=== PATIENT | male | born 1985 | race Caucasian/White ===

== ENCOUNTER 2017-01-23 18:11 | Inpatient (IN) | payer OTHER ==
[~2017-01-23] VITALS: Ht 182.8 cm; Wt 62.1 kg
--- NOTE | ~2017-01-23 | CON ---
[place], [place] REPORT OF CONSULTATION NAME: YIN UMANZOR UNIT #: [id number] ROOM: [facility] DOCTOR: Lisa CAMPOS,ELEUTERIOCLEMENTINA BIRTHDATE: [birth year] DOS: 01/24/2017 REASON FOR CONSULTATION: Suicide attempt by overdose. HISTORY OF PRESENT ILLNESS: The patient was seen, chart reviewed and spoke with the resident as well as the nursing staff. The patient is a 31-year-old white male, daughter and by the side. The patient got admitted to the ICU after overdose on an unknown amount of Tylenol. Reportedly, the patient overdosed on a handful of Tylenol when no one was at home except for the youngest kid. The patient was a little bit irritable and upset during the interview. He said that he has been feeling depressed lately because of his pain issues. He said that his pain physician as well as his neurology team has been giving him a "run around." He also talked about feeling like "less of a man." He reported being depressed, down, sad, hopeless and helpless, but when I discussed with him about the issue of getting admitted to a psych unit, he became really upset and agitated and felt like there is no need for him to get into the hospital. He denied any symptoms of psychosis, aime, or hypomania. ALLERGIES: No known drug allergies. PAST MEDICAL HISTORY: Significant for low back pain. PAST PSYCHIATRIC HISTORY: The patient denied any prior psychiatric hospitalization. No prior suicide attempt. No suicide in the family. Denied having any gun at home. SUBSTANCE ABUSE HISTORY: The patient mentioned that he smokes marijuana at times. Denied any drugs or alcohol. SOCIAL HISTORY: Born and raised in the [place], 11th grade education, never , has 4 kids. 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 He lives with his girlfriend and kids. Denied any history of physical or sexual abuse. MENTAL STATUS EXAMINATION: The patient was irritable and upset. Described his mood as "okay." Affect was labile. Thought process goal directed. No flight of ideas, loosening of association. He denied auditory or visual hallucination. No delusion or paranoia noted. He denied any suicidal or homicidal ideation, intent or plan, although he made a suicide attempt by overdosing on pills. He is still labile and irritable and still he reports being depressed and down. ASSESSMENT: 1. Major depressive disorder, recurrent without psychotic feature, status post suicide attempt. 2. Marijuana abuse. PLAN: 1. Continue current care in the ICU. [place], [place] REPORT OF CONSULTATION NAME: YIN UMANZOR UNIT #: [id number] ROOM: [facility] DOCTOR: Lisa CAMPOS,STEVEN BIRTHDATE: [birth year] 2. Please transfer the patient to inpatient psych hospitalization for further care and stabilization. This is based on the fact that the patient overdosed on Tylenol and he is still very labile, irritable and angry. 3. Continue redirection and supportive care. 4. The patient should be pink slipped and sent to the psychiatric unit if he refuses. STEVEN CAMPOS MD CM:CONSTR:REPORT OF CONSULTATION 1148 01/25/17 0206 interface
[~2017-01-23 18:11] MED LIST: 'PARAFON FORTE500 M1 PO; ABILIFY15 MG PO; ACETAMINOHPEN/C1 TAB PO; ACETAMINOPHEN-H1 TA2 PO; ADDERALL XR10 MG; AMOXICILLIN500 MG PO; CYCLOBENZAPRINE10 MG PO; Depakote250 MG PO; FLEXERIL10 MG PO; FLEXERIL5 MG PO; GEODON40 MG PO; HYDROCODONE BIT1 T11 PO; IBU800 M1 PO; LITHIUM CARBON300 MG PO; LOMOTIL 0.025 M1 TA1 PO; MOTRIN800 MG PO; Motrin,Rufen800 MG PO; NAPROSYN500 MG PO; NORCO 5-325 TA1 EACH PO; PREDNICOT20 MG PO; PREDNISONE10 MG PO; ULTRAM50 MG PO; XANAX1 MG; ZOFRAN ODT4 MG SL
[2017-01-23 18:27] VITALS: BP 146/86
[2017-01-23 18:30] LABS: BASO % 0.4 % (0.0-1.0); EOS # 0.1 10*3/uL (0.0-0.4); EOS % 0.9 % (1.0-4.0); HEMATOCRIT 44.6 % (42.0-52.0); HEMOGLOBIN 15.6 g/dl (14.0-18.0); LYMPH # 1.9 10*3/uL (1.3-4.4); LYMPH % 17.7 % (27.0-41.0); MEAN CELL VOLUME 88.1 fl (80.0-94.0); MEAN CORPUSCULAR HGB 30.8 pg (27.0-31.0); MEAN PLATELET VOLUME 9.7 fl (9.6-12.3); MONO # 0.7 10*3/uL (0.1-1.0); MONO % 6.7 % (3.0-9.0); NEUT # 7.7 10*3/uL (2.3-7.9); PLATELET COUNT AUTOMATED 283 10*3/uL (130-400); RED BLOOD COUNT 5.06 10*6/uL (4.50-5.90); RED CELL DISTRI WIDTH 13.2 % (0-14.5); WHITE BLOOD COUNT 10.4 10*3/uL (4.8-10.8)
[2017-01-23 18:46] LABS: ALBUMIN 4.6 gm/dl (3.1-4.5); ALKALINE PHOSPHATASE 69 U/L (45-117); BILIRUBIN, TOTAL 0.8 mg/dl (0.2-1.0); BUN 7 mg/dl (7-24); CARBON DIOXIDE 26 mmol/L (21-32); CHLORIDE 105 mmol/L (98-107); EST GLOM FILT AFRICAN AMERICAN > 60 ml/min; GLUCOSE 102 mg/dL (65-99); POTASSIUM 3.6 mmol/L (3.5-5.1); SGOT/AST 19 IU/L (3-35); SGPT/ALT 17 U/L (12-78); SODIUM 141 mmol/L (136-145); TOTAL PROTEIN 7.7 gm/dL (6.4-8.2)
[2017-01-23 18:48] LABS: TROPONIN I < 0.015 ng/ml (<0.045)
[2017-01-23 18:50] LABS: INTERNATIONAL NORM RATIO 1.2 (2.0-3.5); PROTHROMBIN TIME 13.3 SECONDS (9.0-12.4)
[2017-01-23 18:53] LABS: THYROID STIM HORMONE (HS) 0.139 uIU/ml (0.358-4.75)
[2017-01-23 19:03] LABS: BILIRUBIN NEGATIVE (NEGATIVE); BLOOD NEGATIVE (NEGATIVE); CLARITY SL CLOUDY (CLEAR); COLOR YELLOW (YELLOW); GLUCOSE NEGATIVE (NEGATIVE); KETONE NEGATIVE (NEGATIVE); LEUKO ESTERASE NEGATIVE (NEGATIVE); NITRITE NEGATIVE (NEGATIVE); PROTEIN NEGATIVE (NEGATIVE); SPECIFIC GRAVITY <= 1.005 (1.005-1.030); URINE AMPHETAMINES < 1000 (1000ng/ml); URINE BARBITURATES < 200 (200ng/ml); URINE COCAINE < 300 (300ng/ml); UROBILINOGEN 0.2 E.U./dl (0.2-1.0)
[2017-01-23 19:10] VITALS: BP 129/90
[2017-01-23 19:13] LABS: BACTERIA 1+; EPITHELIAL CELLS 0-2; RBC 0-2 rbc/hpf (0-2); URINE REFLEX COMMENT NO (NO); WBC 0-2 wbc/hpf (0-5)
[2017-01-24 05:46] LABS: HEMOGLOBIN A1c 5.4 % (4.8-5.6)
[2017-01-24 05:59] LABS: ALBUMIN 3.6 gm/dl (3.1-4.5); ALKALINE PHOSPHATASE 54 U/L (45-117); BILIRUBIN, TOTAL 0.8 mg/dl (0.2-1.0); BUN 9 mg/dl (7-24); CARBON DIOXIDE 28 mmol/L (21-32); CHLORIDE 111 mmol/L (98-107); CHOLESTEROL 126 mg/dL (<200); EST GLOM FILT AFRICAN AMERICAN > 60 ml/min; FREE T4 1.12 ng/dl (0.76-1.46); GLUCOSE 90 mg/dL (65-99); HDL CHOLESTEROL 40 mg/dl (40-60); LDL CHOLESTEROL 63 mg/dL (9-159); POTASSIUM 3.4 mmol/L (3.5-5.1); SGOT/AST 21 IU/L (3-35); SGPT/ALT 17 U/L (12-78); SODIUM 143 mmol/L (136-145); TOTAL PROTEIN 6.6 gm/dL (6.4-8.2); TRIGLYCERIDES 115 mg/dl (<150); VLDL CHOLESTEROL 23 mg/dL (6-40)
[2017-01-24 06:05] LABS: THYROID STIM HORMONE (HS) 0.143 uIU/ml (0.358-4.75)
[2017-01-24 06:09] LABS: BASO % 0.4 % (0.0-1.0); EOS # 0.2 10*3/uL (0.0-0.4); EOS % 2.2 % (1.0-4.0); LYMPH # 1.8 10*3/uL (1.3-4.4); MEAN CELL VOLUME 88.6 fl (80.0-94.0); MEAN CORPUSCULAR HGB 30.2 pg (27.0-31.0); MEAN CORPUSCULAR HGB CONC 34.1 g/dl (33.0-37.0); MEAN PLATELET VOLUME 10.2 fl (9.6-12.3); MONO # 0.7 10*3/uL (0.1-1.0); MONO % 9.8 % (3.0-9.0); NEUT # 4.5 10*3/uL (2.3-7.9); NEUT % 62.5 % (47.0-73.0); PLATELET COUNT AUTOMATED 246 10*3/uL (130-400); RED BLOOD COUNT 4.63 10*6/uL (4.50-5.90); RED CELL DISTRI WIDTH 13.2 % (0-14.5); WHITE BLOOD COUNT 7.3 10*3/uL (4.8-10.8)
[2017-01-24 07:01] LABS: INTERNATIONAL NORM RATIO 1.3 (2.0-3.5); PROTHROMBIN TIME 13.6 SECONDS (9.0-12.4)
[2017-01-24 07:31] VITALS: BP 131/81
[2017-01-24 09:05] VITALS: BP 141/96; BP 147/96
[2017-01-24] MEDS ORDERED: VICO75300 PO (09:13)
[2017-01-24] MEDS ORDERED: PERCOCET 5-3251 EACH PO (09:13)
[2017-01-24 12:00] VITALS: BP 113/66
[2017-01-24 12:09] LABS: ALBUMIN 4.6 gm/dl (3.1-4.5); ALKALINE PHOSPHATASE 71 U/L (45-117); BILIRUBIN, TOTAL 0.9 mg/dl (0.2-1.0); BUN 8 mg/dl (7-24); CARBON DIOXIDE 25 mmol/L (21-32); CHLORIDE 108 mmol/L (98-107); EST GLOM FILT AFRICAN AMERICAN > 60 ml/min; GLUCOSE 97 mg/dL (65-99); SGOT/AST 30 IU/L (3-35); SGPT/ALT 23 U/L (12-78); SODIUM 139 mmol/L (136-145); TOTAL PROTEIN 8.2 gm/dL (6.4-8.2)
[2017-01-24 16:00] VITALS: BP 92/57
[2017-01-24 20:00] VITALS: BP 137/89
[2017-01-25] VITALS: BP 136/93
[2017-01-25 06:20] LABS: ALBUMIN 3.5 gm/dl (3.1-4.5); ALKALINE PHOSPHATASE 51 U/L (45-117); BILIRUBIN, TOTAL 0.8 mg/dl (0.2-1.0); BUN 8 mg/dl (7-24); CARBON DIOXIDE 27 mmol/L (21-32); CHLORIDE 110 mmol/L (98-107); EST GLOM FILT AFRICAN AMERICAN > 60 ml/min; GLUCOSE 90 mg/dL (65-99); POTASSIUM 3.9 mmol/L (3.5-5.1); SGOT/AST 21 IU/L (3-35); SGPT/ALT 18 U/L (12-78); SODIUM 142 mmol/L (136-145); TOTAL PROTEIN 6.3 gm/dL (6.4-8.2)
[2017-01-25 08:00] VITALS: BP 118/69
[2017-01-25 12:00] VITALS: BP 130/77
[2017-01-25 16:00] VITALS: BP 147/94
[2017-01-25 20:00] VITALS: BP 145/90
[2017-01-26 14:12] LABS: FOLIC ACID 15.89 ng/mL (>5.38)
== END 2017-01-25 22:38 | disposition home health service (06) | DRG 918 ==
LOC: ED 18:11 → EDHOLD 19:30 → ICCU 19:30
PROVIDERS: Internal Medicine; Nurse Practitioner Family
DX: T39.1X2A Poisoning by 4-Aminophenol derivatives, intentional self-harm, initial encounter (principal); E87.8 Other disorders of electrolyte and fluid balance, not elsewhere classified; F33.9 Major depressive disorder, recurrent, unspecified; F12.10 Cannabis abuse, uncomplicated; E87.6 Hypokalemia; T39.312A Poisoning by propionic acid derivatives, intentional self-harm, initial encounter; F17.200 Nicotine dependence, unspecified, uncomplicated; F41.1 Generalized anxiety disorder; M54.5 Low back pain; F20.9 Schizophrenia, unspecified; Z79.899 Other long term (current) drug therapy; Z83.1 Family history of other infectious and parasitic diseases; Z71.6 Tobacco abuse counseling

== ENCOUNTER 2017-12-08 01:44 | Emergency (ER) | payer OTHER ==
[~2017-12-08] VITALS: Ht 185.4 cm; Wt 68.0 kg
[~2017-12-08 01:44] MED LIST changes: +PERCOCET 5-3251 EACH PO; +VICO75300 PO
[2017-12-08 01:55] LABS: MEAN CELL VOLUME 92.9 fl (80.0-94.0); MEAN CORPUSCULAR HGB 30.3 pg (27.0-31.0); MEAN CORPUSCULAR HGB CONC 32.6 g/dl (33.0-37.0); MEAN PLATELET VOLUME 9.7 fl (9.6-12.3); PLATELET COUNT AUTOMATED 296 10*3/uL (130-400); RED BLOOD COUNT 4.95 10*6/uL (4.50-5.90); WHITE BLOOD COUNT 20.9 10*3/uL (4.8-10.8)
[2017-12-08 02:05] LABS: ACT PARTIAL THROMBO TIME 24.7 SECONDS (20.8-31.5); INTERNATIONAL NORM RATIO 1.3 (2.0-3.5)
[2017-12-08 02:12] LABS: ALBUMIN 4.4 gm/dl (3.1-4.5); ALKALINE PHOSPHATASE 155 U/L (45-117); BUN 25 mg/dl (7-24); CHLORIDE 101 mmol/L (98-107); CREATININE 1.32 mg/dL (0.70-1.30); POTASSIUM 4.7 mmol/L (3.5-5.1); SGOT/AST 222 IU/L (3-35); SGPT/ALT 143 U/L (12-78); SODIUM 139 mmol/L (136-145); TOTAL PROTEIN 8.3 gm/dL (6.4-8.2)
[2017-12-08 02:13] LABS: TOTAL CELLS COUNTED 100 #CELLS
[2017-12-08 02:14] LABS: BURR CELLS FEW; PLATELET SUFFICIENCY NORMAL (NORMAL)
[2017-12-08 02:15] LABS: ETHYL ALCOHOL < 3.0 mg/dl (<3); TROPONIN I < 0.015 ng/ml (<0.045)
[2017-12-08 02:16] LABS: ACETAMINOPHEN (TYLENOL) < 2.0 ug/ml (10-30)
[2017-12-08 02:47] VITALS: BP 103/65
[2017-12-08 03:45] LABS: BILIRUBIN NEGATIVE (NEGATIVE); BLOOD NEGATIVE (NEGATIVE); CLARITY CLEAR (CLEAR); COLOR YELLOW (YELLOW); GLUCOSE NEGATIVE (NEGATIVE); KETONE NEGATIVE (NEGATIVE); LEUKO ESTERASE NEGATIVE (NEGATIVE); NITRITE NEGATIVE (NEGATIVE); PH 5.5 (5.0-9.0); SPECIFIC GRAVITY >= 1.030 (1.005-1.030)
[2017-12-08 03:55] LABS: URINE AMPHETAMINES > 1000 (1000ng/ml); URINE BARBITURATES < 200 (200ng/ml); URINE BENZODIAZEPINES < 200 (200ng/ml); URINE CANNABINOIDS (THC) > 50 (50ng/ml); URINE COCAINE > 300 (300ng/ml); URINE METHADONE < 300 (300ng/ml); URINE OPIATES > 300 (300ng/ml)
[2017-12-08 04:04] LABS: URINE PHENCYCLIDINE < 25 (25ng/ml)
[2017-12-08 04:09] LABS: BACTERIA TRACE; RBC 0-2 rbc/hpf (0-2); WBC 0-2 wbc/hpf (0-5)
== END 2017-12-08 04:59 | disposition left against medical advice (07) ==
LOC: ED 01:44
PROVIDERS: Student in an Organized Health Care Education/Training Program
DX: T40.1X1A Poisoning by heroin, accidental (unintentional), initial encounter (principal); R65.10 Systemic inflammatory response syndrome (SIRS) of non-infectious origin without acute organ dysfunction; F12.10 Cannabis abuse, uncomplicated; F17.200 Nicotine dependence, unspecified, uncomplicated; Y92.9 Unspecified place or not applicable

== ENCOUNTER 2017-12-08 09:55 | Inpatient (IN) | payer OTHER ==
[~2017-12-08] VITALS: Ht 185.4 cm; Wt 64.0 kg
[2017-12-08 09:56] VITALS: BP 106/59
[2017-12-08 10:35] LABS: MEAN CELL VOLUME 91.2 fl (80.0-94.0); MEAN CORPUSCULAR HGB 30.7 pg (27.0-31.0); MEAN CORPUSCULAR HGB CONC 33.6 g/dl (33.0-37.0); MEAN PLATELET VOLUME 9.6 fl (9.6-12.3); PLATELET COUNT AUTOMATED 208 10*3/uL (130-400); RED BLOOD COUNT 4.11 10*6/uL (4.50-5.90); WHITE BLOOD COUNT 16.6 10*3/uL (4.8-10.8)
[2017-12-08 10:36] LABS: HEMATOCRIT 37.5 % (42.0-52.0); HEMOGLOBIN 12.6 g/dl (14.0-18.0)
[2017-12-08 10:48] LABS: BILIRUBIN NEGATIVE (NEGATIVE); BLOOD NEGATIVE (NEGATIVE); CLARITY SL CLOUDY (CLEAR); COLOR YELLOW (YELLOW); GLUCOSE NEGATIVE (NEGATIVE); KETONE NEGATIVE (NEGATIVE); LEUKO ESTERASE NEGATIVE (NEGATIVE); NITRITE NEGATIVE (NEGATIVE); SPECIFIC GRAVITY >= 1.030 (1.005-1.030)
[2017-12-08 10:51] LABS: ALBUMIN 3.6 gm/dl (3.1-4.5); ALKALINE PHOSPHATASE 111 U/L (45-117); BUN 19 mg/dl (7-24); CHLORIDE 103 mmol/L (98-107); CREATININE 0.77 mg/dL (0.70-1.30); POTASSIUM 4.1 mmol/L (3.5-5.1); SGOT/AST 110 IU/L (3-35); SGPT/ALT 105 U/L (12-78); SODIUM 136 mmol/L (136-145); TOTAL PROTEIN 6.8 gm/dL (6.4-8.2)
[2017-12-08 10:58] LABS: PLATELET SUFFICIENCY NORMAL (NORMAL); TOTAL CELLS COUNTED 100 #CELLS
[2017-12-08 11:01] LABS: URINE AMPHETAMINES < 1000 (1000ng/ml); URINE BARBITURATES < 200 (200ng/ml); URINE BENZODIAZEPINES < 200 (200ng/ml); URINE CANNABINOIDS (THC) > 50 (50ng/ml); URINE COCAINE > 300 (300ng/ml); URINE METHADONE < 300 (300ng/ml); URINE OPIATES > 300 (300ng/ml)
[2017-12-08 11:02] LABS: EPITHELIAL CELLS 0-2; MUCOUS 1+
[2017-12-08 11:03] LABS: URINE PHENCYCLIDINE < 25 (25ng/ml)
[2017-12-08 11:31] VITALS: BP 112/70
[2017-12-08 12:58] LABS: INTERNATIONAL NORM RATIO 1.3 (2.0-3.5)
[2017-12-08 16:11] VITALS: BP 93/50
[2017-12-08 20:00] VITALS: BP 93/47
[2017-12-09] VITALS: BP 109/60
[2017-12-09 04:00] VITALS: BP 92/45
[2017-12-09 08:00] VITALS: BP 97/54
== END 2017-12-09 11:34 | disposition left against medical advice (07) | DRG 894 ==
LOC: ED 09:55 → EDHOLD 10:59 → 5E 10:59
PROVIDERS: Internal Medicine Hospice and Palliative Medicine; Nurse Practitioner Family
DX: F11.23 Opioid dependence with withdrawal (principal); D68.9 Coagulation defect, unspecified; D64.9 Anemia, unspecified; M54.30 Sciatica, unspecified side; D72.829 Elevated white blood cell count, unspecified; F12.10 Cannabis abuse, uncomplicated; F14.10 Cocaine abuse, uncomplicated; Z53.21 Procedure and treatment not carried out due to patient leaving prior to being seen by health care provider; R07.9 Chest pain, unspecified; G25.81 Restless legs syndrome; R74.0 Nonspecific elevation of levels of transaminase and lactic acid dehydrogenase [LDH]; E83.51 Hypocalcemia; F41.1 Generalized anxiety disorder; F31.9 Bipolar disorder, unspecified; Z72.0 Tobacco use; Z71.6 Tobacco abuse counseling; Z83.6 Family history of other diseases of the respiratory system

== ENCOUNTER 2018-04-13 14:22 | Inpatient (IN) | payer OTHER ==
[~2018-04-13] VITALS: Ht 185.4 cm; Wt 59.0 kg
--- NOTE | ~2018-04-13 | EKG ---
[place], [place] ELECTROCARDIOGRAM REPORT NAME: YIN UMANZOR UNIT #: [id number] ROOM: 528 DOCTOR: KIMO DRAFT REPORT BIRTHDATE: [birth year] [facility] Test Date: 2018-04-13 Test Time: 15:16:00 Pat Name: YIN UMANZOR Department: Room: 528 Gender: M Electrocardiographic Technician: Cintia Weeks : 1985 Requested By: TIMOTHY LAMA DNP Order Number: [id number] Reading MD: Finn Oliva MD Measurements Intervals [place] Rate: 72 P: 60 ID: 110 QRS: 55 QRSD: 98 T: 44 QT: 379 QTc: 415 Interpretive Statements Sinus rhythm Borderline short ID interval Probable left ventricular hypertrophy ST elev, probable normal early repol pattern Baseline wander in lead(s) V4,V5 Electronically Signed On 04-14-2018 8:30:04 PDT by Finn Oliva MD CM:EKGRPT:ELECTROCARDIOGRAM REPORT 1516 [id number] TIMOTHY LAMA DNP EPIPHANY DRAFT REPORT TIMOTHY LAMA DNP
[2018-04-13 14:23] VITALS: BP 128/88
[2018-04-13 14:46] LABS: BILIRUBIN 1+ (NEGATIVE); BLOOD NEGATIVE (NEGATIVE); CLARITY SL CLOUDY (CLEAR); COLOR YELLOW (YELLOW); GLUCOSE NEGATIVE (NEGATIVE); KETONE 1+ (NEGATIVE); LEUKO ESTERASE NEGATIVE (NEGATIVE); NITRITE NEGATIVE (NEGATIVE)
[2018-04-13 14:55] LABS: URINE AMPHETAMINES < 1000 (1000ng/ml); URINE BARBITURATES < 200 (200ng/ml); URINE BENZODIAZEPINES > 200 (200ng/ml); URINE CANNABINOIDS (THC) > 50 (50ng/ml); URINE COCAINE > 300 (300ng/ml); URINE METHADONE < 300 (300ng/ml); URINE OPIATES > 300 (300ng/ml)
[2018-04-13 14:56] LABS: BACTERIA TRACE; EPITHELIAL CELLS 0-2; MUCOUS 1+
[2018-04-13 14:57] LABS: URINE PHENCYCLIDINE < 25 (25ng/ml)
[2018-04-13 15:10] LABS: BASO % 0.3 % (0.0-1.0); EOS # 0.1 10*3/uL (0.0-0.4); EOS % 0.7 % (1.0-4.0); HEMATOCRIT 45.5 % (42.0-52.0); HEMOGLOBIN 15.8 g/dl (14.0-18.0); LYMPH # 1.4 10*3/uL (1.3-4.4); LYMPH % 14.3 % (27.0-41.0); MEAN CELL VOLUME 90.1 fl (80.0-94.0); MEAN CORPUSCULAR HGB 31.3 pg (27.0-31.0); MEAN CORPUSCULAR HGB CONC 34.7 g/dl (33.0-37.0); MEAN PLATELET VOLUME 9.8 fl (9.6-12.3); MONO # 0.7 10*3/uL (0.1-1.0); MONO % 7.6 % (3.0-9.0); NEUT # 7.4 10*3/uL (2.3-7.9); NEUT % 76.8 % (47.0-73.0); PLATELET COUNT AUTOMATED 259 10*3/uL (130-400); RED BLOOD COUNT 5.05 10*6/uL (4.50-5.90); RED CELL DISTRI WIDTH 13.8 % (0-14.5); WHITE BLOOD COUNT 9.6 10*3/uL (4.8-10.8)
[2018-04-13 15:26] LABS: ALBUMIN 4.1 gm/dl (3.1-4.5); ALKALINE PHOSPHATASE 56 U/L (45-117); BUN 7 mg/dl (7-24); CHLORIDE 107 mmol/L (98-107); CREATININE 0.71 mg/dL (0.70-1.30); SGOT/AST 12 IU/L (3-35); SGPT/ALT 13 U/L (12-78); SODIUM 140 mmol/L (136-145); TOTAL PROTEIN 7.5 gm/dL (6.4-8.2)
[2018-04-13 15:29] LABS: ACETAMINOPHEN (TYLENOL) < 5.0 ug/ml (10-30); ETHYL ALCOHOL < 3.0 mg/dl (<3); TROPONIN I < 0.015 ng/ml (<0.045)
[2018-04-13 15:44] LABS: INTERNATIONAL NORM RATIO 1.3 (2.0-3.5)
[2018-04-13 16:00] VITALS: BP 121/74
[2018-04-13 16:55] VITALS: BP 128/88
[2018-04-13 20:00] VITALS: BP 124/64
[2018-04-14] VITALS: BP 113/65
[2018-04-14 08:00] VITALS: BP 108/58
[2018-04-14 12:00] VITALS: BP 121/78
== END 2018-04-14 13:11 | disposition left against medical advice (07) | DRG 894 ==
LOC: ED 14:22 → EDHOLD 15:02 → 5E 15:02
PROVIDERS: Internal Medicine; Nurse Practitioner Family
DX: F11.23 Opioid dependence with withdrawal (principal); E80.6 Other disorders of bilirubin metabolism; F41.9 Anxiety disorder, unspecified; R82.4 Acetonuria; M54.30 Sciatica, unspecified side; F12.10 Cannabis abuse, uncomplicated; F41.1 Generalized anxiety disorder; G25.81 Restless legs syndrome; M54.12 Radiculopathy, cervical region; Z53.21 Procedure and treatment not carried out due to patient leaving prior to being seen by health care provider; F19.90 Other psychoactive substance use, unspecified, uncomplicated; F31.9 Bipolar disorder, unspecified; Z72.0 Tobacco use; Z71.6 Tobacco abuse counseling; Z91.5 Personal history of self-harm; Z82.5 Family history of asthma and other chronic lower respiratory diseases

== ENCOUNTER 2019-04-01 13:58 | Emergency (ER) | payer OTHER ==
[~2019-04-01] VITALS: Ht 185.4 cm; Wt 68.0 kg
[2019-04-01 13:58] VITALS: BP 163/94
[2019-04-01 15:05] LABS: BILIRUBIN 2+ (NEGATIVE); BLOOD NEGATIVE (NEGATIVE); CLARITY CLEAR (CLEAR); COLOR YELLOW (YELLOW); GLUCOSE NEGATIVE (NEGATIVE); KETONE 3+ (NEGATIVE); LEUKO ESTERASE NEGATIVE (NEGATIVE); NITRITE NEGATIVE (NEGATIVE); SPECIFIC GRAVITY >= 1.030 (1.005-1.030); UROBILINOGEN 0.2 E.U./dl (0.2-1.0)
[2019-04-01 15:30] LABS: MUCOUS 2+
[2019-04-05 04:09] LABS: GONOCOCCUS BY NAA Negative (Negative)
== END 2019-04-01 15:46 | disposition home or self-care (01) ==
LOC: ED 13:58
PROVIDERS: Nurse Practitioner Family
DX: R30.0 Dysuria (principal); F14.10 Cocaine abuse, uncomplicated; F17.200 Nicotine dependence, unspecified, uncomplicated; Z98.890 Other specified postprocedural states

== ENCOUNTER 2019-07-09 18:27 | Emergency (ER) | payer OTHER ==
[~2019-07-09] VITALS: Ht 182.8 cm; Wt 70.3 kg
[2019-07-09 19:14] VITALS: BP 137/101
== END 2019-07-09 19:23 | disposition left against medical advice (07) ==
LOC: ED 18:27
DX: F19.90 Other psychoactive substance use, unspecified, uncomplicated (principal); F14.10 Cocaine abuse, uncomplicated; F11.10 Opioid abuse, uncomplicated; G89.29 Other chronic pain; Z98.890 Other specified postprocedural states; Z87.891 Personal history of nicotine dependence; Z53.29 Procedure and treatment not carried out because of patient's decision for other reasons

== ENCOUNTER 2019-07-11 16:44 | Inpatient (IN) | payer OTHER ==
[~2019-07-11] VITALS: Ht 185.4 cm; Wt 68.0 kg
[2019-07-11 16:54] VITALS: BP 120/86
[2019-07-11 17:17] LABS: BASO # 0.1 10*3/uL (0.0-0.1); BASO % 0.7 % (0.0-1.0); EOS # 0.1 10*3/uL (0.0-0.4); HEMATOCRIT 47.6 % (42.0-52.0); HEMOGLOBIN 16.1 g/dl (14.0-18.0); LYMPH % 15.4 % (27.0-41.0); MEAN CELL VOLUME 90.2 fl (80.0-94.0); MEAN CORPUSCULAR HGB 30.5 pg (27.0-31.0); MEAN CORPUSCULAR HGB CONC 33.8 g/dl (33.0-37.0); MEAN PLATELET VOLUME 9.3 fl (9.6-12.3); MONO % 7.9 % (3.0-9.0); NEUT # 9.4 10*3/uL (2.3-7.9); NEUT % 74.8 % (47.0-73.0); PLATELET COUNT AUTOMATED 311 10*3/uL (130-400); RED BLOOD COUNT 5.28 10*6/uL (4.50-5.90); RED CELL DISTRI WIDTH 13.3 % (0-14.5); WHITE BLOOD COUNT 12.6 10*3/uL (4.8-10.8)
[2019-07-11 17:27] LABS: ACT PARTIAL THROMBO TIME 25.4 SECONDS (20.0-32.1); INTERNATIONAL NORM RATIO 1.1 (2.0-3.5)
[2019-07-11 17:31] LABS: ALBUMIN 3.9 gm/dl (3.1-4.5); ALKALINE PHOSPHATASE 74 U/L (45-117); BUN 8 mg/dl (7-24); CHLORIDE 104 mmol/L (98-107); CREATININE 0.84 mg/dL (0.70-1.30); POTASSIUM 3.9 mmol/L (3.5-5.1); SGOT/AST 18 IU/L (3-35); SGPT/ALT 38 U/L (12-78); SODIUM 137 mmol/L (136-145); TOTAL PROTEIN 7.4 gm/dL (6.4-8.2)
[2019-07-11 17:43] LABS: BILIRUBIN NEGATIVE (NEGATIVE); BLOOD NEGATIVE (NEGATIVE); CLARITY CLEAR (CLEAR); COLOR YELLOW (YELLOW); GLUCOSE NEGATIVE (NEGATIVE); KETONE NEGATIVE (NEGATIVE); LEUKO ESTERASE NEGATIVE (NEGATIVE); NITRITE NEGATIVE (NEGATIVE); PH 7.5 (5.0-9.0); URINE AMPHETAMINES > 1000 (1000ng/ml); URINE BARBITURATES < 200 (200ng/ml); URINE BENZODIAZEPINES > 200 (200ng/ml); URINE CANNABINOIDS (THC) > 50 (50ng/ml); URINE COCAINE < 300 (300ng/ml); URINE METHADONE < 300 (300ng/ml); URINE OPIATES < 300 (300ng/ml); UROBILINOGEN 0.2 E.U./dl (0.2-1.0)
[2019-07-11 17:45] LABS: EPITHELIAL CELLS 0-2; RBC 0-2 rbc/hpf (0-2); WBC 0-2 wbc/hpf (0-5)
[2019-07-11 17:46] LABS: URINE PHENCYCLIDINE < 25 (25ng/ml)
[2019-07-11 18:00] VITALS: BP 139/81
--- NOTE | 2019-07-11 18:00 | NUR ---
34 year old MALE admitted to room # 520 for stabilization. Reports an addiction to METH, FENTANYL last used 24 hours prior to admission. Compliant with admission procedure. Patient denies any anxiety, but is unable to sit still, taps toes to floor continuously, looks about room, unable to focus eyes on nurse during interview. See assessment forms for additional information about patient status.
[2019-07-11 20:00] VITALS: BP 137/66
--- NOTE | 2019-07-11 23:57 | NUR ---
PT IN BATHROOM W/MUSIC PLAYING ON CELL PHONE. PT CAME OUT OF BR FOR LIBRIUM. PT EXHIBITING S/S OF ANXIOUSNESS. REFUSING ANY PRN MEDS AT THIS TIME. CALL LIGHT IN REACH.
[2019-07-12] VITALS: BP 134/56
[2019-07-12 08:00] VITALS: BP 136/98
--- NOTE | 2019-07-12 08:41 | NUR ---
PT REFUSES ALL MEDS AT THIS TIME STATING THAT HE IS "PISSED OFF AND DOESNT KNOW WHY, MUST HAVE BEEN THE MEDS THEY GAVE ME."
--- NOTE | 2019-07-12 09:46 | NUR ---
PATIENT MEETS [facility]. [place] STAFF WILL FOLLOW UP WITH PATIENT WITH [facility]. 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
--- NOTE | 2019-07-12 09:52 | NUR ---
PT SIGNED OUT AGAINST MEDICAL ADVICE AT THIS TIME. DOCTOR NOTIFIED. SUPERVISOR FILTER ASSEMBLY NOTIFIED.
== END 2019-07-12 09:52 | disposition left against medical advice (07) | DRG 770 ==
LOC: ED 16:44 → EDHOLD 17:18 → 5E 17:34
PROVIDERS: Family Medicine; ADMIT Internal Medicine
DX: F11.23 Opioid dependence with withdrawal (principal); F15.20 Other stimulant dependence, uncomplicated; F17.210 Nicotine dependence, cigarettes, uncomplicated; F31.32 Bipolar disorder, current episode depressed, moderate; F41.1 Generalized anxiety disorder; G25.81 Restless legs syndrome; F14.10 Cocaine abuse, uncomplicated; E83.41 Hypermagnesemia; R73.9 Hyperglycemia, unspecified; D72.829 Elevated white blood cell count, unspecified; Z53.29 Procedure and treatment not carried out because of patient's decision for other reasons; D72.810 Lymphocytopenia; G89.29 Other chronic pain; M54.30 Sciatica, unspecified side; F12.10 Cannabis abuse, uncomplicated; Z71.6 Tobacco abuse counseling; Z91.5 Personal history of self-harm; Z83.6 Family history of other diseases of the respiratory system; Z80.1 Family history of malignant neoplasm of trachea, bronchus and lung

== ENCOUNTER 2019-08-14 09:48 | Emergency (ER) | payer OTHER ==
[2019-08-14 09:55] VITALS: BP 127/108
[2019-08-14] MEDS ORDERED: SUBOXONE 8 MG-1 EACH SL (10:00)
[2019-08-14 11:23] LABS: BILIRUBIN NEGATIVE (NEGATIVE); BLOOD NEGATIVE (NEGATIVE); CLARITY SL CLOUDY (CLEAR); COLOR YELLOW (YELLOW); GLUCOSE NEGATIVE (NEGATIVE); KETONE NEGATIVE (NEGATIVE); NITRITE NEGATIVE (NEGATIVE); PH 6.5 (5.0-9.0); SPECIFIC GRAVITY 1.015 (1.005-1.030); UROBILINOGEN 0.2 E.U./dl (0.2-1.0)
[2019-08-14 11:24] LABS: LEUKO ESTERASE NEGATIVE (NEGATIVE)
[2019-08-14 11:30] LABS: BACTERIA 2+; EPITHELIAL CELLS 0-2; MUCOUS TRACE; WBC 0-2 wbc/hpf (0-5)
[2019-08-14 11:33] LABS: URINE AMPHETAMINES > 1000 (1000ng/ml); URINE BARBITURATES < 200 (200ng/ml); URINE BENZODIAZEPINES < 200 (200ng/ml); URINE CANNABINOIDS (THC) > 50 (50ng/ml); URINE COCAINE > 300 (300ng/ml); URINE METHADONE < 300 (300ng/ml); URINE OPIATES < 300 (300ng/ml)
[2019-08-14 11:34] LABS: URINE PHENCYCLIDINE < 25 (25ng/ml)
[2019-08-16 00:07] LABS: GONOCOCCUS BY NAA Negative (Negative)
== END 2019-08-14 11:18 | disposition home or self-care (01) ==
LOC: ED 09:48
PROVIDERS: Emergency Medicine
DX: Z20.2 Contact with and (suspected) exposure to infections with a predominantly sexual mode of transmission (principal); F17.200 Nicotine dependence, unspecified, uncomplicated; Z79.899 Other long term (current) drug therapy

== ENCOUNTER 2019-12-20 18:51 | Emergency (ER) | payer OTHER ==
[~2019-12-20] VITALS: Ht 185.4 cm; Wt 69.4 kg
[~2019-12-20 18:51] MED LIST changes: +SUBOXONE 8 MG-1 EACH SL
[2019-12-20 18:59] VITALS: BP 180/120
[2019-12-20 19:15] LABS: BASO # 0.1 10*3/uL (0.0-0.1); BASO % 0.6 % (0.0-1.0); EOS # 0.1 10*3/uL (0.0-0.4); EOS % 0.7 % (1.0-4.0); HEMATOCRIT 46.2 % (42.0-52.0); LYMPH # 2.4 10*3/uL (1.3-4.4); LYMPH % 18.3 % (27.0-41.0); MEAN CORPUSCULAR HGB 30.1 pg (27.0-31.0); MEAN CORPUSCULAR HGB CONC 33.8 g/dl (33.0-37.0); MEAN PLATELET VOLUME 9.2 fl (9.6-12.3); MONO # 1.3 10*3/uL (0.1-1.0); MONO % 9.6 % (3.0-9.0); NEUT # 9.4 10*3/uL (2.3-7.9); NEUT % 70.6 % (47.0-73.0); PLATELET COUNT AUTOMATED 417 10*3/uL (130-400); RED BLOOD COUNT 5.19 10*6/uL (4.50-5.90); RED CELL DISTRI WIDTH 13.7 % (0-14.5); WHITE BLOOD COUNT 13.3 10*3/uL (4.8-10.8)
[2019-12-20 19:33] LABS: ALBUMIN 4.1 gm/dl (3.1-4.5); ALKALINE PHOSPHATASE 63 U/L (45-117); BUN 11 mg/dl (7-24); CHLORIDE 109 mmol/L (98-107); ETHYL ALCOHOL < 3.0 mg/dl (<3); POTASSIUM 3.9 mmol/L (3.5-5.1); SGOT/AST 20 IU/L (3-35); SGPT/ALT 28 U/L (12-78); SODIUM 140 mmol/L (136-145); TOTAL PROTEIN 7.7 gm/dL (6.4-8.2)
[2019-12-20 19:34] LABS: ACETAMINOPHEN (TYLENOL) < 3.0 ug/ml (10-30)
== END 2019-12-21 09:45 | disposition home or self-care (01) ==
LOC: ED 18:51
PROVIDERS: Emergency Medicine
DX: F22 Delusional disorders (principal); F14.10 Cocaine abuse, uncomplicated; F19.10 Other psychoactive substance abuse, uncomplicated; F17.200 Nicotine dependence, unspecified, uncomplicated; G89.29 Other chronic pain; F31.9 Bipolar disorder, unspecified; F12.10 Cannabis abuse, uncomplicated; F11.10 Opioid abuse, uncomplicated; G25.81 Restless legs syndrome; Z98.890 Other specified postprocedural states; Z79.899 Other long term (current) drug therapy

== ENCOUNTER 2020-12-25 13:23 | Emergency (ER) | payer OTHER | END 2020-12-25 13:30 | LOC: ED 13:23 | DX: Z01.89 Encounter for other specified special examinations (principal); Z53.21 Procedure and treatment not carried out due to patient leaving prior to being seen by health care provider ==

== ENCOUNTER 2020-12-30 11:28 | Emergency (ER) | payer OTHER ==
[~2020-12-30] VITALS: Ht 185.4 cm; Wt 88.5 kg
[2020-12-30 11:33] VITALS: BP 127/72
[2020-12-30 13:43] LABS: URINE AMPHETAMINES < 1000 (1000ng/ml); URINE BARBITURATES < 200 (200ng/ml); URINE BENZODIAZEPINES < 200 (200ng/ml); URINE CANNABINOIDS (THC) > 50 (50ng/ml); URINE COCAINE < 300 (300ng/ml); URINE METHADONE < 300 (300ng/ml); URINE OPIATES < 300 (300ng/ml)
[2020-12-30 13:43] LABS: BASO % 0.3 % (0.0-1.0); EOS # 0.2 10*3/uL (0.0-0.4); EOS % 2.9 % (1.0-4.0); HEMATOCRIT 46.2 % (42.0-52.0); LYMPH % 26.7 % (27.0-41.0); MEAN CELL VOLUME 89.4 fl (80.0-94.0); MEAN CORPUSCULAR HGB 30.4 pg (27.0-31.0); MEAN PLATELET VOLUME 9.6 fl (9.6-12.3); MONO # 0.6 10*3/uL (0.1-1.0); MONO % 7.8 % (3.0-9.0); NEUT # 4.7 10*3/uL (2.3-7.9); PLATELET COUNT AUTOMATED 321 10*3/uL (130-400); RED BLOOD COUNT 5.17 10*6/uL (4.50-5.90); RED CELL DISTRI WIDTH 13.3 % (0-14.5); WHITE BLOOD COUNT 7.5 10*3/uL (4.8-10.8)
[2020-12-30 13:49] LABS: BILIRUBIN Negative (Negative); CLARITY Cloudy (Clear); COLOR Yellow (Yellow); GLUCOSE Negative (Negative); KETONE Negative (Negative)
[2020-12-30 13:50] LABS: BLOOD Negative (Negative); LEUKO ESTERASE Negative (Negative); NITRITE Negative (Negative); RBC 0-2 rbc/hpf (0-2); SPECIFIC GRAVITY 1.015 (1.001-1.030); URINE PHENCYCLIDINE < 25 (25ng/ml); WBC 0-2 wbc/hpf (0-5)
[2020-12-30 14:00] LABS: ALBUMIN 3.6 gm/dl (3.1-4.5); ALKALINE PHOSPHATASE 75 U/L (45-117); BUN 11 mg/dl (7-24); CHLORIDE 108 mmol/L (98-107); CREATININE 0.69 mg/dL (0.70-1.30); POTASSIUM 4.1 mmol/L (3.5-5.1); SGOT/AST 19 IU/L (3-35); SGPT/ALT 54 U/L (12-78); SODIUM 137 mmol/L (136-145); TOTAL PROTEIN 7.1 gm/dL (6.4-8.2)
[2020-12-30 14:01] LABS: ACETAMINOPHEN (TYLENOL) < 5.0 ug/ml (10-30); ETHYL ALCOHOL < 3.0 mg/dl (<3)
== END 2020-12-30 16:17 | disposition home or self-care (01) ==
LOC: ED 11:28
PROVIDERS: Physician Assistant
DX: F19.10 Other psychoactive substance abuse, uncomplicated (principal); G89.29 Other chronic pain; M25.511 Pain in right shoulder; F11.10 Opioid abuse, uncomplicated; F15.10 Other stimulant abuse, uncomplicated; F12.10 Cannabis abuse, uncomplicated; R19.7 Diarrhea, unspecified; F17.200 Nicotine dependence, unspecified, uncomplicated; Z79.899 Other long term (current) drug therapy; Z98.890 Other specified postprocedural states